=== PATIENT | female | born 1985 | race Caucasian/White ===

== ENCOUNTER 2017-03-09 17:06 | Observation (INO) | payer OTHER ==
[2017-03-09] MEDS ORDERED: Sodium Chloride 0.9% 10 ML Syringe FLUSH PRN (17:43)
[2017-03-09] MEDS ORDERED: Sodium Chloride 0.9% 2.5 ML Syringe FLUSH PRN (17:43)
[2017-03-09] MEDS ORDERED: Misoprostol 100 MCG Tab VAG ONE (18:30)
[2017-03-09] MEDS ORDERED: Misoprostol 200 MCG Tab ONE (18:43)
[2017-03-09] MEDS ORDERED: Misoprostol 200 MCG Tab VAG ONE (18:45)
[2017-03-09] MEDS ORDERED: Butorphanol 1 MG/ML SDV IVPUSH PRN (18:59)
[2017-03-09 19:29] LABS: CHLORIDE,CL 109 mmol/L (98-110); SODIUM,NA 139 mmol/L (136-146)
[2017-03-09] MEDS: Misoprostol 200 MCG Tab VAG SCH (23:23)
[2017-03-10] MEDS ORDERED: Morphine 2 MG/ML Syringe IVPUSH PRN (01:24)
[2017-03-10] MEDS ORDERED: Morphine 2 MG/ML Syringe ONE (01:26)
[2017-03-10] MEDS: Misoprostol 200 MCG Tab VAG SCH ×2 (03:46→10:11)
[2017-03-10] MEDS ORDERED: Oxytocin/0.9 % Sodium Chloride 30 UNIT/500 ML BAG ONE (06:49)
[2017-03-10] MEDS ORDERED: Oxytocin/0.9 % Sodium Chloride 30 UNIT/500 ML BAG IV SCH (07:00)
[2017-03-10] MEDS ORDERED: Ampicillin/Sulbactam Na 3 GM in Sodium Chloride 0.9% 100 ML IV ONE (07:50)
[2017-03-10] MEDS ORDERED: Lactated Ringers 1,000 ML IV SCH (08:00)
--- NOTE | 2017-03-10 08:13 | PCM.PREANE ---
Preanesthetic Assessment - Anesthesia/Transfusion/Family Hx Anesthesia History: Prior Anesthesia Without Reaction Other Type of Anesthesia Reaction Comment: Reports daughter age 4 currently, quit breathing with adnoidectomy/PE tubes Family History of Anesthesia Reaction: No Transfusion History: No Prior Transfusion(s) - Review of Systems General: No Symptoms Pulmonary: No Symptoms Cardiovascular: No Symptoms Gastrointestinal: No Symptoms Neurological: No Symptoms Other: Reports: None - Physical Assessment NPO Status Date: 03/09/17 NPO Status Time: 19:00 (sips of water 2 hours ago) Height: 1.52 m Weight: 72.575 kg ASA Class: 2 Mental Status: Alert & Oriented x3 Airway Class: Mallampati = 2 Dentition: Reports: Normal Dentition ROM/Head Extension: Full - Lab Values: Laboratory Last Values WBC 9.25 K/uL (4.0-11.0) 03/09/17 18:10 RBC 4.82 M/uL (4.30-5.90) 03/09/17 18:10 Hgb 14.0 g/dL (12.0-16.0) 03/09/17 18:10 Hct 39.9 % (36.0-46.0) 03/09/17 18:10 MCV 82.8 fL (80.0-98.0) 03/09/17 18:10 MCH 29.0 pg (27.0-32.0) 03/09/17 18:10 MCHC 35.1 g/dL (31.0-37.0) 03/09/17 18:10 RDW Std Deviation 41.7 fl (28.0-62.0) 03/09/17 18:10 RDW Coeff of Tyra 14 % (11.0-15.0) 03/09/17 18:10 Plt Count 211 K/uL (150-400) 03/09/17 18:10 MPV 10.20 fL (7.40-12.00) 03/09/17 18:10 Neut % (Auto) 75.2 % (48.0-80.0) 03/09/17 18:10 Lymph % (Auto) 18.8 % (16.0-40.0) 03/09/17 18:10 Monona % (Auto) 5.5 % (0.0-15.0) 03/09/17 18:10 Eos % (Auto) 0.4 % (0.0-7.0) 03/09/17 18:10 Baso % (Auto) 0.1 % (0.0-1.5) 03/09/17 18:10 Neut # (Auto) 7.0 K/uL (1.4-5.7) H 03/09/17 18:10 Lymph # (Auto) 1.7 K/uL (0.6-2.4) 03/09/17 18:10 Monona # (Auto) 0.5 K/uL (0.0-0.8) 03/09/17 18:10 Eos # (Auto) 0.0 K/uL (0.0-0.7) 03/09/17 18:10 Baso # (Auto) 0.0 K/uL (0.0-0.1) 03/09/17 18:10 Nucleated RBC % 0.0 /100WBC 03/09/17 18:10 Nucleated RBCs # 0 K/uL 03/09/17 18:10 Sodium 139 mmol/L (136-146) 03/09/17 18:10 Potassium 4.0 mmol/L (3.5-5.1) 03/09/17 18:10 Chloride 109 mmol/L (98-110) 03/09/17 18:10 Carbon Dioxide 17 mmol/L (21-31) L 03/09/17 18:10 BUN 8 mg/dL (6.0-23.0) 03/09/17 18:10 Creatinine 0.7 mg/dL (0.6-1.5) 03/09/17 18:10 Est Cr Clr Drug Dosing 82.11 mL/min 03/09/17 18:10 Estimated GFR (MDRD) > 60.0 ml/min 03/09/17 18:10 Glucose 76 mg/dL (60-110) 03/09/17 18:10 Hemoglobin A1c 5.0 % (0.0-6.0) 03/09/17 18:10 Calcium 9.7 mg/dL (8.8-10.8) 03/09/17 18:10 Total Bilirubin 0.4 mg/dL (0.1-1.5) 03/09/17 18:10 AST 13 IU/L (5-40) 03/09/17 18:10 ALT 6 IU/L (8-54) L 03/09/17 18:10 Alkaline Phosphatase 55 (40-150) 03/09/17 18:10 Total Protein 6.7 g/dL (6.0-8.0) 03/09/17 18:10 Albumin 4.2 g/dL (3.5-5.0) 03/09/17 18:10 Globulin 2.5 g/dL (2.0-3.5) 03/09/17 18:10 Albumin/Globulin Ratio 1.7 (1.3-2.8) 03/09/17 18:10 TSH 3rd Generation 1.13 uIU/mL (0.47-5.0) 03/09/17 18:10 Urine Opiates Screen NEGATIVE (NEGATIVE) 03/09/17 19:15 Ur Oxycodone Screen NEGATIVE (NEGATIVE) 03/09/17 19:15 Urine Methadone Screen NEGATIVE (NEGATIVE) 03/09/17 19:15 Ur Barbiturates Screen NEGATIVE (NEGATIVE) 03/09/17 19:15 Ur Phencyclidine Scrn NEGATIVE (NEGATIVE) 03/09/17 19:15 Ur Amphetamine Screen NEGATIVE (NEGATIVE) 03/09/17 19:15 U Methamphetamines Scrn NEGATIVE (NEGATIVE) 03/09/17 19:15 U Benzodiazepines Scrn NEGATIVE (NEGATIVE) 03/09/17 19:15 U Cocaine Metab Screen NEGATIVE (NEGATIVE) 03/09/17 19:15 U Marijuana (THC) Screen NEGATIVE (NEGATIVE) 03/09/17 19:15 Blood Type A NEGATIVE 03/09/17 18:10 Antibody Screen NEGATIVE 03/09/17 18:10 KB Screen SEE NOTE 03/09/17 18:10 KB Cells Counted 0 03/09/17 18:10 KB Red Cells Counted 209703/09/17 18:10 KB % Cells 0.00 03/09/17 18:10 Doses of RhIg Required 1 03/09/17 18:10 - Allergies Allergies/Adverse Reactions: Allergies Allergy/AdvReac Type Severity Reaction Status Date / Time hydrocodone bitartrate AdvReac Mild Nausea and Verified 12/05/15 11:17 [From Vicodin] Vomiting - Acknowledgements Anesthesia Type Planned: General Anesthesia Pt an Appropriate Candidate for the Planned Anesthesia: Yes Alternatives and Risks of Anesthesia Discussed w Pt/Guardian: Yes Pt/Guardian Understands and Agrees with Anesthesia Plan: Yes PreAnesthesia Questionnaire HEENT History: Reports: None Cardiovascular History: Reports: None Respiratory History: Reports: Other (See Below) Other Respiratory History: Morning pre-op insterview, she sounded congested in her nose, denies any cold symptoms 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 3x C-sections - Past Surgical History HEENT Surgical History: Reports: None Cardiovascular Surgical History: Reports: None Female Surgical History: Reports: Breast Reduction, Section, D&C Other Oncologic Surgeries/Procedures: Breast reduction bilaterally '2008, Benign Breast biopsy '2010 - SUBSTANCE USE Smoking Status *Q: Never Smoker Tobacco Use Within Last Twelve Months: No Other Tobacco Use Within Last Twelve Months: Smoked for 1 yr in teens, Quit 10 yrs ago Second Hand Smoke Exposure: No Recreational Drug Use History: No - HOME MEDS Home Medications: Home Meds Labetalol [Normodyne] 1 tab PO BID 11/30/15 [History] Pnv No.122/Iron/Folic Acid [ Multi Tablet] 1 tab PO DAILY 11/30/15 [ History] - CURRENT (IN HOUSE) MEDS Current Meds: Current Medications Butorphanol Tartrate (Stadol) 1 mg IVPUSH Q1H PRN PRN Reason: Pain Last Admin: 03/10/17 00:32 Dose: 1 mg Oxytocin/Sodium Chloride (Oxytocin 30 Unit/500 Ml-Ns) 30 unit in 500 mls @ 999 mls/hr IV TITRATE REYNA; 999 MUNITS/MIN PRN Reason: Protocol Last Admin: 03/10/17 06:52 Dose: 999 munits/min, 999 mls/hr Ampicillin Sodium/Sulbactam (Sodium 3 gm/ Sodium Chloride) 100 mls @ 200 mls/ hr IV ONETIME ONE Stop: 03/10/17 08:19 Last Admin: 03/10/17 08:11 Dose: 200 mls/hr Lactated Ringer's (Ringers, Lactated) 1,000 mls @ 999 mls/hr IV ASDIRECTED [facility] Last Admin: 03/10/17 07:55 Dose: 999 mls/hr Misoprostol (Cytotec) 400 mcg VAG Q4H REYNA Last Admin: 03/10/17 03:46 Dose: 400 mcg Morphine Sulfate (Morphine) 0.5 mg IVPUSH Q4H PRN PRN Reason: Pain Last Admin: 03/10/17 06:40 Dose: 0.5 mg Sodium Chloride (Saline Flush) 10 ml FLUSH ASDIRECTED PRN PRN Reason: Keep Vein Open Sodium Chloride (Saline Flush) 2.5 ml FLUSH ASDIRECTED PRN PRN Reason: Keep Vein Open Discontinued Medications Oxytocin/Sodium Chloride (Oxytocin 30 Unit/500 Ml-Ns) Confirm Administered Dose 30 unit in 500 mls @ as directed .ROUTE .STK-MED ONE Stop: 03/10/17 06:50 Misoprostol (Cytotec) 800 mcg VAG ONETIME ONE Stop: 03/09/17 18:31 Misoprostol (Cytotec) 800 mcg VAG ONETIME ONE Stop: 03/09/17 18:46 Last Admin: 03/09/17 19:17 Dose: 800 mcg Misoprostol (Cytotec) Confirm Administered Dose 800 mcg .ROUTE .STK-MED ONE Stop: 03/09/17 18:44 Morphine Sulfate (Morphine) Confirm Administered Dose 2 mg .ROUTE .STK-MED ONE Stop: 03/10/17 01:27
[2017-03-10] MEDS ORDERED: fentaNYL 100 MCG/2 ML SDV ONE ×2 (08:20→09:05)
[2017-03-10] MEDS ORDERED: Propofol 200 MG/20 ML SDV ONE (08:20)
[2017-03-10] MEDS ORDERED: Midazolam 1 MG/ML 2 ML SDV ONE (08:21)
[2017-03-10] MEDS ORDERED: Succinylcholine/Normal Saline 200 MG/10 ML Syringe ONE (08:22)
[2017-03-10] MEDS ORDERED: Dexamethasone 4 MG/ML 5 ML MDV ONE (08:22)
[2017-03-10] MEDS ORDERED: Rocuronium 10 MG/ML 10 ML Syringe ONE (08:22)
[2017-03-10] MEDS ORDERED: Ondansetron 4 MG/2 ML SDV ONE (08:22)
[2017-03-10] MEDS ORDERED: fentaNYL 100 MCG/2 ML SDV IVPUSH PRN (08:28)
[2017-03-10] MEDS ORDERED: Methylergonovine 0.2 MG/1 ML Amp ONE (08:42)
--- NOTE | 2017-03-10 09:11 | OR ---
SURGEON: Carolyn Friedman MD DATE OF PROCEDURE: 03/10/2017 PREOPERATIVE DIAGNOSIS: Medical management for 2nd trimester loss at 15 weeks and 6 days gestation. POSTOPERATIVE DIAGNOSES: 1. Medical management for 2nd trimester loss at 15 weeks and 6 days gestation. 2. Delivered. 3. Retained placenta PROCEDURE: Normal vaginal delivery. ANESTHESIA: None. ESTIMATED BLOOD LOSS: 200 mL. FINDINGS: Male , delivered at 0140 hours, with no signs of life. External examination of the baby was negative for anatomical anomalies. Retained placenta post delivery. DESCRIPTION OF PROCEDURE: The patient is a -0-1-3, who presented to the office on the 09 of March for her routine visit at 15 weeks and 6 days gestation,dated by her last menstrual period consistent with a 1st trimester 9 weeks sonogram. She had no complaints, but heart was not picked up on routine Doppler and this was followed by ultrasound, which confirmed a 2nd trimester loss at 14 weeks and 2 days gestation by biometry. Management options were discussed with the patient and she accepted to proceed with medical management. She was admitted for induction and received 2 doses of Cytotec, the 1st loading dose with 800 mcg vaginally followed by 400 mcg of Cytotec 4 hours later. Shortly after the 2nd dose,she proceeded to have spontaneous vaginal delivery of a male with no signs of life at 0140 hours on the 10 of March. The cord was clamped, cut, the baby was cleaned, and handed over to the mother at her request. There was minimal bleeding immediately post delivery. Placenta separation did not occur following delivery. She received a 3rd dose of Cytotec 400 mcg, placed vaginally and but when she was re-evaluated an hour later, the placenta had not . The patient did not want to have surgical intervention and since she was not bleeding this was deemed appropriate to wait. But at 4 hours post delivery with no resultant placental separation, I recommended that that we proceed with surgical management to reduce risks of hemorrhage and infection. She was still hesitant. Two hours later the placenta was still retained despite Cytotec and Oxytocin drip. The patient then accepted to proceed surgical intervention. Dilatation and curettage, benefits and risks were discussed with her extensively and consent was obtained. She was also given a dose of Unasyn, 3 g IV. See my separate dictation for management for surgical removal of the retained placenta. ABDIV / MODL /[id number] MTDD
[2017-03-10] MEDS ORDERED: Ibuprofen 800 MG Tab PO PRN (09:41)
[2017-03-10] MEDS ORDERED: Ibuprofen 400 MG Tab PO PRN (09:41)
[2017-03-10] MEDS ORDERED: oxyCODONE 5 MG Tab PO PRN (09:41)
[2017-03-10] MEDS ORDERED: Acetaminophen 500 MG Tab PO PRN ×2 (09:41)
--- NOTE | 2017-03-10 09:56 | PCM.POSTAN ---
POST ANESTHESIA ASSESSMENT - MENTAL STATUS Mental Status: Alert, Oriented - RESPIRATORY Respiratory Status: Respiratory Rate WNL, Airway Patent, O2 Saturation Stable - CARDIOVASCULAR CV Status: Pulse Rate WNL, Blood Pressure Stable - GASTROINTESTINAL GI Status: No Symptoms - POST OP HYDRATION Hydration Status: Adequate & Stable
--- NOTE | 2017-03-10 10:30 | PCM48HPAN ---
Post Anesthesia Note - EVALUATION WITHIN 48HRS OF ANESTHETIC Vital Signs in Normal Range: Yes Patient Participated in Evaluation: Yes Respiratory Function Stable: Yes Airway Patent: Yes Cardiovascular Function Stable: Yes Hydration Status Stable: Yes Pain Control Satisfactory: Yes Nausea and Vomiting Control Satisfactory: Yes Mental Status Recovered: Yes
--- NOTE | 2017-03-10 10:38 | OR ---
SURGEON: Carolyn Friedman MD DATE OF PROCEDURE: 03/10/2017 PREOPERATIVE DIAGNOSIS: Retained placenta POSTOPERATIVE DIAGNOSIS: Retained placenta PROCEDURE: Suction curettage. ANESTHESIA: General endotracheal. IV FLUID REPLACED: 1500 mL of crystalloid. ESTIMATED BLOOD LOSS: 350 mL. FINDINGS: Placenta adherent to the posterior uterine wall. Thin endometrial stripe postprocedure. COMPLICATIONS: None. DISPOSITION: Stable to recovery room BRIEF HISTORY: The patient is a 32-year-old G5, P3-0-1-3, who underwent medical management for 2nd trimester loss at 15 weeks and 6 days gestation. She had a vaginal delivery of a male infant with no signs of life, but unfortunately she had retained placenta more than 4 hours post delivery despite Cytotec and Oxytocin. Risk of dilatation and curettage was explained to the patient including but not limited to infection, bleeding, injury to the cervix or uterine perforation. An appropriate consent was obtained. DESCRIPTION OF PROCEDURE: The patient was taken to the operating room where induction of anesthesia was performed without difficulty. After adequate level of anesthesia, she was placed in dorsal lithotomy position, SCDs in place, prepped and draped in the usual sterile fashion for vaginal surgery. Appropriate time-out was held. She received 3 g of Unasyn preop. The cervix was 3cm dilated The placenta was adherent to the posterior wall. A bivalve speculum was placed into the vagina and the anterior lip of the cervix was grasped with ring forceps. A size 12 straight plastic cannula was introduced easily into the uterus and suction activated. A moderate amount of products were retrieved, but significant amount of the placenta was still seen with umbilical cord still attached. The suction curette was then removed and a large broad shaped curette was introduced into the cavity and curettage was performed. Significant amount of the placenta was then retrieved. Further curettage was performed until a gritty feeling of the cavity was felt. Further suction was performed to retrieve blood clots. An ultrasound was performed and a thin endometrial stripe was documented both at the fundus and the lower uterine segment. The patient received methargen 0.2 mg IM. Uterine massage was performed and the uterus was found to be contracted with no further active bleeding noted. The ring forceps were removed from the anterior lip and the area was found to be hemostatic. The vagina and cervix were examined and there were no lacerations noted. The placental tissue was sent off to pathology for analysis. The patient tolerated the procedure well. Sponge and instrument counts were correct at the end of the procedure. She was taken to recovery room in a stable condition. SIMRAN ZHANG /[id number] MTDD
--- NOTE | 2017-03-10 11:15 | PCM.OPNOTE ---
- General Post-Op/Procedure Note Date of Surgery/Procedure: 03/10/17 Operative Procedure(s): Suction curettage Findings: Adherent placenta to posterior wall. Thin endometrial lining Pre Op Diagnosis: Retained Placenta Post-Op Diagnosis: Same Anesthesia Technique: General ET Tube Primary Surgeon: Carolyn Friedman Fluid Replacement, Intraop: 1,500 EBL in mLs: 350 Complications: None Condition: Good Free Text/Narrative:: Intake & Output 03/09/17 03/10/17 03/10/17 22:59 06:59 14:59 Intake Total 1250 Output Total 30 Balance 1220
[2017-03-10 13:05] VITALS: BP 123/82
== END 2017-03-10 14:55 | disposition home or self-care (01) ==
LOC: MW.OB 17:06
PROVIDERS: ADMIT Obstetrics & Gynecology; ATTEND Obstetrics & Gynecology
DX: O02.1 Missed abortion (principal); O72.0 Third-stage hemorrhage; F41.9 Anxiety disorder, unspecified; F32.9 Major depressive disorder, single episode, unspecified; I10 Essential (primary) hypertension; Z88.5 Allergy status to narcotic agent; Z87.891 Personal history of nicotine dependence
CPT/HCPCS: 36415; 59812; 59841; 80053; 80305; 83036; 84443; 85014; 85018; 85025; 85460; 86644; 86645; 86777; 86778; 86850; 86900; 86901; 88233; A9270; J0295; J0595; J1100; J2250; J2270; J2405; J2590; J2790; J3010; J7030; J7120; 01965; 59409; 86747; 88305; 96374; 96375; G0378; J2704